=== PATIENT | male | born 1965 | race Caucasian/White ===

== ENCOUNTER → 2016-11-12 | Outpatient (CLI) | payer BC ==
[~2016-11-12] MED LIST: ALLEGRA ALLERGY60 MG PO; ASPIRIN81 MG PO; ATORVASTATIN CA80 MG PO; BRILINTA90 MG PO; LEVOXYL112 MC1 PO; METOPROLOL SUCC25 MG PO; NITROSTAT0.4 MG SL; OMEPRAZOLE40 M1 PO
--- NOTE | ~2016-11-12 | TH ---
Unit #: [id number] #: [id number] Patient: ALBERT DICKENS [id number] [address] [address] [id number] O MR#: [id number] NAME: ALBERT DICKENS. : 1965 SEX: M STUDY DATE/TIME: UNIT: [facility] ROOM: STUDY DESCRIPTION: Nuclear Study Attending Physician: Ashlee Guzman M.D. Referring Physician: Ashlee Guzman M.D. Primary Care Physician: Magaly oB M.D. CARDIOLOGY REPORT EXAM Exercise Cardiolite Stress Test - Nuclear Portion PROCEDURE Using technetium 99m labeled Cardiolite, rest and stress SPECT images were obtained. Multiple SPECT images were obtained in various views including horizontal and vertical long axis and short axis views of the left ventricle. Images were obtained by gated SPECT method. The patient was administered 10.78 mCi of Cardiolite at rest. The patient was administered 31.8 mCi of Cardiolite at peak exercise. Total exercise time is 10 minutes 18 seconds. On the stress images, there is normal perfusion noted. The rest images showed normal perfusion. Comparing rest and stress images, there is no stress-induced ischemia noted. The left ventricular ejection fraction is calculated to be 70%. There is no focal wall motion abnormality seen. CONCLUSION 1. No stress-induced ischemia noted. 2. The left ventricular ejection fraction is calculated to be 70%. 3. There is no focal wall motion abnormality seen. 4. Normal exercise Cardiolite stress test. Dictated by... Franklin Archibald TD: 11/12/2016 12:26 JOB #: [id number] Unit #: [id number] #: [id number] Patient: ALBERT DICKENS CARDIOLOGY REPORT X Ashlee Guzman MD <ELECTRONICALLY SIGNED> 03/30/17 1429 CARDIOLOGY REPORT
--- NOTE | ~2016-11-12 | ST ---
Unit #: [id number] #: [id number] Patient: ALBERT DICKENS [id number] [address] [place], [place] [address] [id number] O MR#: [id number] NAME: ALBERT DICKENS. : 1965 SEX: M STUDY DATE/TIME: 11/12/2016 UNIT: [facility] ROOM: STUDY DESCRIPTION: Cardiac stress test Attending Physician: Ashlee Guzman M.D. Referring Physician: Ashlee Guzman M.D. Primary Care Physician: Magaly Bo M.D. CARDIOLOGY REPORT EXAM Cardiac stress test. REASON FOR STUDY [employer] testing. PROCEDURE Baseline EKG showed sinus bradycardia with a rate of 55, with slow R wave progression, as well as some nonspecific T wave abnormalities in the inferior leads. The patient exercised on the treadmill according to Brien protocol for a total exercise time of 10 minutes 18 seconds. The resting heart rate was 55 with a maximum heart rate of 164, which represents 98% of the maximum age-predicted heart rate. The patient's resting blood pressure was 149/98 with a maximum blood pressure of 202/118, which represents the maximum workload METS of 12.2 METS. The patient tolerated the test well with no complications. The patient did have an isolated PVC noted during the test at 10 minutes 13 seconds. There were no sustained arrhythmias, no changes of ST segment and no ectopy noted. The patient tolerated the procedure well with no complications, just some mild shortness of breath toward the end of the test. The patient's blood pressure prior to discharging from the nuclear medicine department was 146/98. IMPRESSION 1. Single PVC noted. 2. No sustained arrhythmias. 3. No changes to ST segment. 4. No chest pain during the test. 5. No complications. 6. No reversal was needed. 7. Please correlate with Cardiolite imaging. Dictated by... Miriam Kincaid APRN for Franklin Archibald TD: 11/12/2016 11:12 JOB #: [id number] Unit #: [id number] #: [id number] Patient: ALBERT DICKENS CARDIOLOGY REPORT X CARDIOLOGY REPORT
== END | disposition home or self-care (01) ==
LOC: CNUC 07:39
DX: I25.10 Atherosclerotic heart disease of native coronary artery without angina pectoris (principal)
CPT/HCPCS: 78452; 93017; A9500